=== PATIENT | male | born 1975 | race Caucasian/White ===

== ENCOUNTER 2017-07-18 10:58 | Day surgery (SDC) | payer BC ==
--- NOTE | 2017-07-06 18:13 | HP ---
PREOPERATIVE HISTORY AND PHYSICAL: DATE OF ADMISSION/SURGERY: 07/11/17 DATE OF OFFICE VISIT/ENCOUNTER: 07/06/17 ATTENDING SURGEON: Bhavna Linares MD * (DICTATED BY ASIM ANDINO) PROCEDURE: Left elbow ulnar nerve decompression. CHIEF COMPLAINT: Numbness and tingling, ulnar nerve distribution, left hand, weakness, left hand. HISTORY OF PRESENT ILLNESS: This is a 42-year-old male who complains of numbness in his left hand and weakness in his left hand. He has a history of a cervical fusion of C5-C7 several years ago done by Dr. Nuno. This was for right-sided symptoms. He did get resolution of his symptoms. He has now for the past month or so been having recurrence of some symptoms that he had 6 months ago, which are numbness in his left hand in the ulnar two fingers. This time, the problem is worse in that there is much more pain involved and it starts under his shoulder blade and radiates all the way down to the back of his upper arm and into his forearm and hand. 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 There was no specific injury that he recalls. A recent nerve conduction study/EMG performed on the left upper extremity showed ulnar neuropathy localized at the elbow. The patient has consented to proceed with surgical intervention at this time in the form of a left elbow ulnar nerve decompression. PAST MEDICAL HISTORY: 1. Sleep disorder. 2. Seasonal allergies. PAST SURGICAL HISTORY: 1. Uvulopalatopharyngoplasty (UPPP). 2. Tonsillectomy. 3. Septoplasty. 4. Anterior cervical disk fusion, C5 through C7. CURRENT MEDICATIONS: 1. Modafinil 200 mg daily. 2. Ibuprofen over the counter p.r.n. 3. Tylenol over the counter p.r.n. ALLERGIES: No known drug allergies. FAMILY MEDICAL HISTORY: Diabetes, heart disease, prostate cancer, breast cancer , arthritis, and spinal stenosis. 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 He is a former smoker. He quit in December of 2008. Prior to that, he smoked about half a pack a day for 16 years. He does admit to smoking marijuana on occasion and denies alcohol use. REVIEW OF SYSTEMS: General: Negative for fevers, chills, or night sweats. No known anesthesia problems. HEENT: Negative for headache, lightheadedness, or syncopal episodes. Integumentary: Negative for abrasions, lesions, or open wounds. Cardiothoracic: Negative for hypertension, chest pain, palpitations, or edema. Pulmonary: Negative for shortness of breath with exertion, chronic cough, COPD. GI: Negative for nausea, vomiting, diarrhea, constipation, or GERD. : Negative for nocturia, urinary frequency, urgency, history of UTIs, or kidney problems. Musculoskeletal: Positive for current complaint. Negative for chronic or intermittent back pain or history of fractures. Neurological: Positive for numbness and tingling in the ulnar nerve distribution in the left upper extremity. Negative for history of seizure, stroke, or epilepsy. Endocrine: Negative for diabetes or thyroid issues. Hematologic: Negative for easy bruising, anemia, excessive bleeding, or history of DVT. Infectious Disease: Negative for history of MRSA, hepatitis C , or HIV. PHYSICAL EXAMINATION GENERAL: Well-developed, well-nourished, 42-year-old male in no acute distress. VITAL SIGNS: Height 5 feet 10 inches, weight 177 pounds, pulse rate 72, blood pressure 132/70. HEENT: Normocephalic, atraumatic. Pupils are equal, round, and reactive to light and accommodation. Extraocular movements are intact. Throat is clear. NECK: Supple. No palpable lymph nodes. PULMONARY: Lungs are clear to auscultation bilaterally. No wheezes, rales, or rhonchi. CARDIOVASCULAR: Regular rate and rhythm. S1, S2. Mild ejection murmur heard with auscultation. No rubs or gallops. No edema. ABDOMEN: Positive bowel sounds, soft, nontender. NEUROLOGIC: Alert and oriented x3. Cranial nerves II through XII are intact. MUSCULOSKELETAL: On exam of his left upper extremity, he has marked weakness resisting finger abduction compared to the right hand and decreased sensation in the ulnar nerve distribution of the left hand. He has a negative Tinel's sign of the ulnar nerve at the wrist and elbow. No visible muscular wasting is noted. DIAGNOSTIC STUDIES: EMG/nerve conduction study of the left upper extremity shows an ulnar neuropathy at the elbow. IMPRESSION: Left nerve compression at the left elbow. PLAN: The patient is scheduled to undergo a left elbow ulnar nerve decompression with Dr. Linares on 07/11/17. He will return to the office 10 to 14 days postop for followup and suture removal. A prescription for [place] was e- scribed to the patient's pharmacy for postoperative pain management. ASIM ANDINO [id number]/[facility] #: [id number] [place]
[~2017-07-18 10:58] MED LIST: Buffered Lidocaine 0.9% SYRIN* 5 ML/SYR SYRINGE INTRADERM ONE
[2017-07-18] MEDS ORDERED: Lidocaine 0.5%* 50 ML SDV ONE (11:51)
[2017-07-18] MEDS ORDERED: Bupivacaine 0.5% SDV PF* 30 ML VIAL ONE (11:59)
[2017-07-18] MEDS ORDERED: Buffered Lidocaine 0.9% SYRIN* 5 ML/SYR SYRINGE ONE (12:02)
[2017-07-18] MEDS ORDERED: Midazolam* 1 MG/ML 2 ML VIAL (2 MG) ONE ×2 (12:07→12:35)
[2017-07-18] MEDS ORDERED: fentaNYL* 50 MCG/ML 2 ML VIAL (100 MCG VIAL) ONE (12:07)
[2017-07-18] MEDS ORDERED: Propofol* 10 MG/ML 20 ML BTL IV PUSH ONE (12:34)
[2017-07-18] MEDS ORDERED: fentaNYL* 50 MCG/ML 2 ML VIAL (100 MCG VIAL) IV PRN (12:37)
[2017-07-18] MEDS ORDERED: Ketorolac INJ* 30 MG/ML 1 ML VIAL IV PRN (12:37)
[2017-07-18] MEDS ORDERED: oxyCODONE/Acetamin 5/325 MG* TAB PO PRN (12:37)
[2017-07-18 13:04] VITALS: BP 121/75
--- NOTE | 2017-07-19 02:08 | OP ---
CC: Bhavna Linares MD OPERATIVE REPORT: DATE OF OPERATION: 07/18/17 - BEN[facility] DATE OF : 71 SURGEON: Bhavna Linares MD ENVIRONMENTAL SCIENTIST: ASIM Garcia ANESTHESIOLOGIST: Edu Coughlin MD ANESTHESIA: IV regional. PRE-OP DIAGNOSIS: Left ulnar neuropathy of the elbow. POST-OP DIAGNOSIS: Left ulnar neuropathy of the elbow. OPERATIVE PROCEDURE: Ulnar nerve decompression of the left elbow. ESTIMATED BLOOD LOSS: Zero. TOURNIQUET TIME: About 30 minutes. INDICATION FOR PROCEDURE: Terry is a 42-year-old male with weakness in his left hand and numbness and tingling in the ulnar nerve distribution. Nerve conduction study shows an ulnar neuropathy at the elbow. He presents for ulnar nerve decompression of the elbow. DESCRIPTION OF PROCEDURE: The patient was brought to the operating room and was given an IV regional anesthetic with a tourniquet around his left upper arm. The skin of his left upper extremity was prepped and draped in the usual sterile fashion. The area of the incision was infiltrated with 10 cc of Marcaine 0.5% plain. A curvilinear incision was made centered between the medial epicondyle and the tip of the olecranon process. We dissected bluntly through the subcutaneous tissue down to the ulnar nerve. The medial antebrachial cutaneous nerve was also located and carefully dissected out and preserved. The ulnar nerve was located in the bony groove and Wahl's ligament was released. The ulnar nerve was released completely proximally for several centimeters and then also distally into the FCU muscle. The superficial and deep fascia of the FCU muscle were divided and the nerve was dissected out all the way into the proximal aspect of the forearm. The medial intermuscular septum was divided as well. With range of motion, the nerve did not sublux. The wound was copiously irrigated with saline. Subcutaneous tissue was closed with 2-0 Polysorb and the skin with skin mario. The wound was dressed with Xeroform, 4x4, Webril, and an Shiva wrap. The patient tolerated the procedure well and was brought to the recovery room in good condition. [id number]/[facility] #: [id number] [facility]
== END 2017-07-18 13:29 | disposition home or self-care (01) ==
LOC: OREAST 10:58
PROVIDERS: ATTEND Orthopaedic Surgery
DX: G56.22 Lesion of ulnar nerve, left upper limb (principal); J45.909 Unspecified asthma, uncomplicated; G47.9 Sleep disorder, unspecified; Z87.891 Personal history of nicotine dependence
CPT/HCPCS: J2250; J2704; J3010

== ENCOUNTER 2019-10-01 12:06 | Emergency (ER) | payer BC ==
[2019-10-01 13:02] VITALS: BP 143/82
--- NOTE | 2019-10-01 13:24 | UC ---
Ear Complaint HPI - HPI Summary HPI Summary: PATIENT HAS HAD URI SYMPTOMS FOR ABOUT 6 DAYS. SON WAS DIAGNOSED WITH FLU YESTERDAY. PATIENT IS NOW COMPLAINING OF SOME LEFT EAR PAIN. NO FEVER. NO CHANGE IN HEARING. - History of Current Complaint Chief Complaint: UCEar Stated Complaint: EAR PAIN Time Seen by Provider: 10/01/19 13:23 Hx Obtained From: Patient Onset/Duration: Gradual Onset, Lasting Days, Still Present Severity Initially: Mild Severity Currently: Mild Pain Intensity: 1 Pain Scale Used: 0-10 Numeric Aggravating Factors: Nothing Alleviating Factors: Nothing Associated Signs/Symptoms: Positive: URI Symptoms - Allergies/Home Medications Allergies/Adverse Reactions: Allergies Allergy/AdvReac Type Severity Reaction Status Date / Time No Known Allergies Allergy Verified 10/01/19 13:03 Home Medications: Home Medications D-Methorphan/PE/Acetaminophen [Daytime Cold Relief Caplet] 1 tab PO Q4H PRN 04/13 [History Confirmed 10/01/19] PMH/Surg Hx/FS Hx/Imm Hx Respiratory History: Asthma - Surgical History Surgical History: Yes Surgery Procedure, Year, and Place: [facility] ;. ENT (TONSILECTOMY AND PALEOPLASTY) surg 1998 '. tubes in ears twice ;. ACDF -2014 - C5-6 C 6-7 - Family History Known Family History: Positive: None - Social History Alcohol Use: None Alcohol Amount: 2-4/DAY Substance Use Type: Marijuana Substance Use Comment - Amount & Last Used: SMOKES 5 X WEEKLY Smoking Status (MU): Former Smoker Amount Used/How Often: 3/4 PACK When Did the Patient Quit Smoking/Using Tobacco: 2008 - Immunization History Most Recent Influenza Vaccination: fall 2012 Most Recent Tetanus Shot: unk Most Recent Pneumonia Vaccination: none Review of Systems All Other Systems Reviewed And Are Negative: Yes Constitutional: Positive: Negative ENT: Positive: Sore Throat, Ear Ache, Sinus Congestion Respiratory: Positive: Cough Cardiovascular: Positive: Negative Gastrointestinal: Positive: Negative Physical Exam Triage Information Reviewed: Yes Appearance: Well-Appearing, No Pain Distress, Well-Nourished Vital Signs: Initial Vital Signs Temp 99.1 F 10/01/19 12:57 Pulse 59 10/01/19 12:57 Resp 20 10/01/19 12:57 BP 143/82 10/01/19 12:57 Pulse Ox 100 10/01/19 12:57 Vital Signs Reviewed: Yes Eyes: Positive: Conjunctiva Clear ENT: Positive: Hearing grossly normal, Pharynx normal, TMs normal - LEFT TM SLIGHTLY RETRACTED Neck: Positive: Supple, Nontender, No Lymphadenopathy Respiratory Exam: Normal Cardiovascular Exam: Normal Abdomen Description: Positive: Soft Musculoskeletal: Positive: No Edema Neurological: Positive: Alert Psychological: Positive: Age Appropriate Behavior Skin: Negative: Rashes Ear Complaint Course/Dx - Course Course Of Treatment: NO EAR INFECTION ON EXAM TODAY HOWEVER LEFT EAR DRUM IS SLIGHTLY RETRACTED. THIS IS LIKELY DUE TO HIS ACUTE URI. SYMPTOMS SHOULD RESOLVE WITH TIME. SUGGESTED AN OTC DECONGESTANT. FOLLOW-UP IF NEEDED. - Differential Dx/Diagnosis Provider Diagnosis: Left ear pain, Upper respiratory infection Discharge ED - Sign-Out/Discharge Documenting (check all that apply): Patient Departure All imaging exams completed and their final reports reviewed: No Studies - Discharge Plan Condition: Stable Disposition: HOME Patient Education Materials: Upper Respiratory Infection (ED) Referrals: Gume Hawley MD [Primary Care Provider] - If Needed Additional Instructions: NO EAR INFECTION ON EXAM TODAY HOWEVER YOUR EARDRUM IS SLIGHTLY RETRACTED WHICH SUGGESTS SOME PRESSURE BUILDUP LIKELY FROM YOUR VIRAL UPPER RESPIRATORY INFECTION. YOUR SYMPTOMS SHOULD IMPROVE ON THEIR OWN WITH TIME. NO INDICATION FOR ANTIBIOTICS AT PRESENT. REST, HYDRATE, OTC MEDS NEEDED. YOU MAY TRY TAKING A DECONGESTANT. SEEK RE-EVALUATION IF SYMPTOMS WORSEN. - Billing Disposition and Condition Condition: STABLE Disposition: Home
== END 2019-10-01 13:53 | disposition home or self-care (01) ==
LOC: UCEAST 12:06
DX: H92.02 Otalgia, left ear (principal); J06.9 Acute upper respiratory infection, unspecified; J45.909 Unspecified asthma, uncomplicated; Z87.891 Personal history of nicotine dependence
CPT/HCPCS: 99211; G0463